=== PATIENT | male | born 1970 | race Caucasian/White ===

== ENCOUNTER → 2016-02-28 | Outpatient (CLI) | payer BC ==
[~2016-02-28] MED LIST: ALLEGRA; CLXOPS3 OP
--- NOTE | 2016-02-28 16:10 | DIAGNOSTIC IMAGING REPORT ---
LEFT FOOT MIN 3 VIEWS ROUTINE CLINICAL HISTORY: CLOSED FRACTURE OF 2ND METATARSAL - LEFT COMPARISON: 02/21/2016 DISCUSSION: There is an intra-articular fracture involving the base of the second metatarsal. Fracture alignment remains unchanged. No additional fractures are visualized. There are no dislocations. There is a plantar calcaneal spur. There is dorsal soft tissue swelling. IMPRESSION: Comminuted intra-articular fracture involving the base of the second metatarsal. Fracture alignment remains unchanged. Electronically signed by: Israel Gaston M.D. 02/28/2016 4:08 PM Dictated Date/Time: 02/28/2016 4:07 PM
== END | disposition home or self-care (01) ==
LOC: C.RAD 15:46
PROVIDERS: ATTEND Family Medicine
DX: S92.323A Displaced fracture of second metatarsal bone, unspecified foot, initial encounter for closed fracture (principal); X58.XXXA Exposure to other specified factors, initial encounter